=== PATIENT | female | born 1985 | race Caucasian/White ===

== ENCOUNTER 2021-02-10 09:00 | Emergency (ER) | payer OTHER, SELFPAY ==
[2021-02-10 09:12] VITALS: BP 145/74; PULSE 70; RESP 14; TEMP 36.4; O2SAT 99; BMI 22.6
--- NOTE | 2021-02-10 09:30 | ED.BACK ---
HPI - Back Pain/Injury General Chief Complaint: Back Pain/Injury Stated Complaint: extreme back and neck pain Time Seen by Provider: 02/10/21 09:29 Source: patient Limitations: no limitations History of Present Illness HPI Narrative: 35-year-old female nonsmoker with no chronic medical problems presents with a chief complaint of a sharp and stabbing anterior chest pain that radiates to her back. This is worsened by deep breath and improves with rest. She denies any cough, runny nose or sore throat. She denies any shortness of breath. She denies any recent travel, history of blood clot. She does take control. She denies any lower extremity pain or swelling. Additionally, and in the same timeframe she has been having pain in her left neck and left shoulder with occasional radiation into her left arm. She denies any current radiation of pain nor numbness, tingling or weakness. She did have some tingling in her left arm yesterday. She denies any trauma or injury. She denies any obvious overuse but states she has been working on her property. She denies any neck pain previously Related Data Home Medications Medication Instructions Recorded Confirmed norgestimate-ethinyl estradiol 1 tab PO DAILY 02/10/21 02/10/21 0.18 mg/0.215mg/0.25mg-35 mcg(28)tablet (Tri-Sprintec (28)) Previous Rx's Medication Instructions Recorded cyclobenzaprine 10 mg tablet 10 mg PO TID PRN #14 tab 02/10/21 gabapentin 300 mg capsule 300 mg PO BEDTIME #14 cap 02/10/21 hydrocodone 5 mg-acetaminophen 325 1 tab PO Q4-6H PRN #10 tab 02/10/21 mg tablet ketorolac 10 mg tablet 10 mg PO Q6H PRN #14 tab 02/10/21 methylprednisolone 4 mg tablets in See Rx Instructions .ROUTE 02/10/21 a dose pack (Medrol (Maximino)) .COMPLEX #21 ea Allergies Allergy/AdvReac Type Severity Reaction Status Date / Time No Known Drug Allergies Allergy Verified 02/10/21 09:18 Review of Systems Review of Systems Narrative: GENERAL: Denies chills, fatigue, malaise, fever, sweats. HEENT: Denies sinus pain, ear pain, sore throat, difficulty swallowing, dizziness. RESPIRATORY: See HPI. CARDIOVASCULAR: See HPI GASTROINTESTINAL: Denies nausea, vomiting, abdominal pain, diarrhea, constipation, melena. : Denies dysuria, frequency, incontinence, hematuria, urinary retention. MUSCULOSKELETAL: See HPI SKIN: Denies rash, skin lesions, or other NEUROLOGIC: See HPI PSYCHIATRIC: No concerning psychosocial issues. 12 point review of systems is negative except for those stated above Patient History Social History Smoking Status: Never smoker Smoking Status: Never smoker alcohol intake frequency: a few times a week Substance Use Type: marijuana Exam Narrative Exam Narrative: GENERAL: [35] year old patient appears stated age. Well-developed patient, in mild distress. Tearful, obviously uncomfortable HEAD: Atraumatic. Normocephalic. EYES: Pupils equal round and reactive. Extraocular motions intact. No scleral icterus. No injection or drainage. ENT: Nose without bleeding, purulent drainage. Throat without erythema, tonsillar hypertrophy or exudate. Airway patent. NECK: Trachea midline. No midline or bony tenderness, step-offs or crepitance. There is some pain on palpation of the left-sided paraspinal musculature, slight worsening with axial loading though no radiation of pain. No extremity weakness, numbness or tingling noted CARDIOVASCULAR: Regular rate and rhythm without murmurs, gallops, or rubs. RESPIRATORY: Clear to auscultation. Breath sounds equal bilaterally. No wheezes, rales, or rhonchi. GASTROINTESTINAL: Abdomen soft, non-tender, nondistended. EXTREMITIES: No edema or joint tenderness. BACK: Nontender without deformity or crepitance. No flank tenderness. NEURO: AOx3. SKIN: No rash or erythema of visible areas Initial Vital Signs Initial Vital Signs: Vital Signs Temperature 97.6 F 02/10/21 09:12 Pulse Rate 70 02/10/21 09:12 Respiratory Rate 14 02/10/21 09:12 Blood Pressure 145/74 H 02/10/21 09:12 Pulse Oximetry 99 02/10/21 09:12 Course Orders Ordered: ED Orders 02/10/21 10:16 Basic Metabolic Panel Stat Complete Blood Count AUTO DIFF Stat D Dimer Stat Troponin & CK Cardiac Panel Stat Discontinued Medications Gabapentin (Gabapentin 300 Mg Capsule) 300 mg PO NOW ONE Stop: 02/10/21 10:03 Last Admin: 02/10/21 10:17 Dose: 300 mg Documented by: MADIE Hydromorphone HCl (Hydromorphone 1 Mg Inj) 1 mg IM NOW ONE Stop: 02/10/21 12:04 Last Admin: 02/10/21 12:14 Dose: 1 mg Documented by: CORNELIUS Ketorolac Tromethamine (Ketorolac 30 Mg/Ml Vial) 30 mg IM NOW ONE Stop: 02/10/21 10:03 Last Admin: 02/10/21 10:17 Dose: 30 mg Documented by: MADIE Prednisone (Prednisone 20 Mg Tablet) 40 mg PO NOW ONE Stop: 02/10/21 10:03 Last Admin: 02/10/21 10:16 Dose: 40 mg Documented by: MADIE Consultations Consultation #1: discussed with ortho (Jennifer) and he has reviewed images. No need for emergent intervention. Recommends return precautions, symptomatic treatment, follow up with Dr. Deras Vital Signs Vital signs: Vital Signs - 8 hr 02/10/21 11:53 02/10/21 12:29 02/10/21 12:46 Pulse Rate 59 L 56 L 60 Respiratory Rate 16 16 Blood Pressure 133/78 139/78 138/75 Pulse Oximetry 100 100 100 02/10/21 12:47 02/10/21 13:00 Pulse Rate 57 L 52 L Respiratory Rate 15 Blood Pressure 138/75 Pulse Oximetry 100 100 MDM - Back Pain/Injury Lab Data Result diagrams: 02/10/21 10:16 02/10/21 10:16 Labs: Lab Results 02/10/21 02/10/21 02/10/21 Range/Units 10:16 10:16 10:16 WBC 5.7 (4.5-11.0) X10^3/uL RBC 3.94 L (4.0-5.2) X10^6/uL Hgb 11.7 L (12.0-16.0) g/dL Hct 34.6 L (36-46) % MCV 87.8 (80-100) fL MCH 29.6 (26-34) PG MCHC 33.7 (30-36) % RDW 12.4 (11.6-14.8) % Plt Count 225 (150-400) X10^3/uL Neut % (Auto) 63.2 (50-75) % Lymph % (Auto) 27.6 (25-40) % Evangeline % (Auto) 6.4 (3-14) % Eos % (Auto) 1.9 L (2-4) % Baso % (Auto) 0.9 (0-2) % Neut # (Auto) 3600 (4355-1487) /uL Lymph # (Auto) 1600 (5824-5418) /uL Evangeline # (Auto) 400 (0-900) /uL Eos # (Auto) 100 (0-450) /uL Baso # (Auto) 0 (0-100) /uL D-Dimer < 200 (<230) ng/mL Sodium 135 L (137-145) mmol/L Potassium 4.5 (3.4-5.1) mmol/L Chloride 104 (98-107) mmol/L Carbon Dioxide 26 (22-32) mmol/L BUN 13 (7-17) mg/dL Creatinine 0.77 (0.52-1.04) mg/dL Estimated GFR > 60.0 (>60) mL/min BUN/Creatinine Ratio 16.9 (6-22) Glucose 102 H (70-100) mg/dL Calcium 9.3 (8.4-10.2) mg/dL Total Creatine Kinase 32 (30-135) U/L CK-MB (CK-2) TNP CK-MB (CK-2) Rel Index TNP Troponin I < 0.012 (0.01-0.034) ng/mL Imaging Data Cervical MRI: Radiologist's Impression: Chart Viewer Diagnostics DATE TYPE STATUS REF RANGE/AUTHOR Hx Today 10:02 Katherine Sanz Today 10:01 Katherine Sanz 35, F011/15/1985 [facility] ER, Main ED 165.1cm 61.689kg BMI: 22.6kg/m? Back Pain/Injury Search Chart No Data to Display Total Pending Discharge ONSET Today 13:00 BetitodotKelin Charo 35 F [address] [id number] Resonance ReportSigned Patient: Kelin Spencer LMR#: [id number]: [id number]:[id number]/Sex: 35 / FDate of Service: 02/10/21Loc: EDAccession Number: [id number] Procedure: MR cervical spine wo con Ordering Provider: Jose Manuel Santos D.O. PROCEDURE: MR CERVICAL SPINE WO CON INDICATIONS: severe neck pain, arm involvement TECHNIQUE: Noncontrast sagittal T1 spin echo and T2 fast spin echo, sagittal STIR, foraminal oblique sagittal T2 fast spin echo, and axial gradient echo or T2 fast spin echo through the cervical spine. COMPARISON: None. FINDINGS: Image quality: Excellent. Alignment and Curvature: There is normal bony alignment. Bone Marrow: Mild reactive endplate changes noted adjacent to the C6-C7 disc. Spinal Cord: Visualized spinal cord has normal size and signal. No cerebellar tonsillar herniation. Paraspinous Soft Tissues: No paravertebral masses. Prevertebral soft tissues are normal in thickness. C2-C3: Normal appearance. C3-C4: Normal appearance. C4-C5: Slight loss of disc signal. Mild, diffuse disc bulge. Mild bilateral uncovertebral joint hypertrophy. Mild narrowing of the central canal. Mild bilateral neural foraminal narrowing. No neural compression. Fissure noted in the posterior annulus. C5-C6: Slight loss of disc signal. Mild, diffuse disc bulge. Mild left uncovertebral joint hypertrophy. Mild narrowing of the central canal. Mild left neural foraminal narrowing. No neural compression. Fissure noted in the posterior annulus. C6-C7: Loss of disc signal. Mild, diffuse disc bulge. Small central disc protrusion. Mild left uncovertebral joint hypertrophy. Moderate narrowing of the central canal. Mild left neural foraminal narrowing. Disc protrusion abuts and slightly contours the anterior margin of the cervical spinal cord. C7-T1: Normal appearance. IMPRESSION: 1. Mild C4-C5, C5-C6 and C6-C7 degenerative disc disease. 2. Moderate C6-C7 central canal narrowing. Mild C4-C5 and C5-C6 central canal narrowing. 3. Mild bilateral C4-C5 neural foraminal narrowing. Mild left C5-C6 and C6-C7 neural foraminal narrowing. 4. C6-C7 central disc protrusion abuts and slightly contours the anterior margin of the cervical spinal cord. Dictated by: Katherine Sanz MD, PhD on 02/10/2021 at 11:25 Approved by: Katherine Sanz MD, PhD on 02/10/2021 at 11:30 Discharge Plan Departure Patient Disposition: Home Clinical Impression: Cervical radiculopathy Instructions: DI for Neck Pain Activity Restrictions/Additional Instructions: *You have been diagnosed with [cervical radiculopathy with mild to moderate impingement on peripheral nerves exiting your left side of neck. No surgical indication. Atypical chest pain without evidence of cardiac, pulmonary or blood clot as the cause] *What to do: *Please continue to take your regular medications as directed. [ x] New medication prescriptions sent to your pharmacy: [ [facility]] [ ] New medication written as a paper prescription [ ] No new medications given *Please follow up with your primary care provider in 2-3 days, call for an appointment. Let them know you were seen in the Emergency Department and that we ask that you be seen in follow up. We will electronically transmit a record of today's note if your PCP is in our system *If you do not have a primary care provider please contact the [facility] Resource line at [phone]. They will ask some questions about your medical history and help get you set up with a doctor in the community. *Return to Emergency Department if you should have any new, worsening or concerning symptoms, such as [fever greater than 101 F, shaking chills, worsening pain, persistent vomiting or other bothersome symptoms] Prescriptions: New cyclobenzaprine 10 mg tablet 10 mg PO TID PRN (Reason: muscle spasm) Qty: 14 RF: 0 hydrocodone-acetaminophen 5-325 mg tablet 1 tab PO Q4-6H PRN (Reason: pain) Qty: 10 RF: 0 ketorolac 10 mg tablet 10 mg PO Q6H PRN (Reason: pain) Qty: 14 RF: 0 gabapentin 300 mg capsule 300 mg PO BEDTIME Qty: 14 RF: 0 methylprednisolone [Medrol (Maximino)] 4 mg tablets,dose pack See Rx Instructions .ROUTE .COMPLEX Qty: 21 RF: 0 No Action norgestimate-ethinyl estradiol [Tri-Sprintec (28)] 0.18/0.215/0.25 mg-35 mcg (28) tablet 1 tab PO DAILY RF: 0 Referrals: Jasiel Deras DO [Physician] - Boris Herrera MD [Primary Care Provider] -
--- NOTE | 2021-02-10 10:01 | DI.RAD.S_ITS ---
PROCEDURE: XR CHEST 1V INDICATIONS: sharp chest pain TECHNIQUE: One view of the chest was acquired. COMPARISON: [facility], CHEST 1 VIEW, 01/23/2013, 10:23. [facility], CHEST 2 VIEW, 06/19/2009, 1:31. FINDINGS: Surgical changes and devices: None. Lungs and pleura: Lungs are clear. No pleural effusions or pneumothorax. Mediastinum: Mediastinal contours appear normal. Heart size is normal. Bones and chest wall: No suspicious bony lesions. Overlying soft tissues appear unremarkable. IMPRESSION: No acute cardiopulmonary disease process. Dictated by: Katherine Sanz MD, PhD on 02/10/2021 at 10:31 Approved by: Katherine Sanz MD, PhD on 02/10/2021 at 10:31
--- NOTE | 2021-02-10 10:02 | DI.MRI.S_ITS ---
PROCEDURE: MR CERVICAL SPINE WO CON INDICATIONS: severe neck pain, arm involvement TECHNIQUE: Noncontrast sagittal T1 spin echo and T2 fast spin echo, sagittal STIR, foraminal oblique sagittal T2 fast spin echo, and axial gradient echo or T2 fast spin echo through the cervical spine. COMPARISON: None. FINDINGS: Image quality: Excellent. Alignment and Curvature: There is normal bony alignment. Bone Marrow: Mild reactive endplate changes noted adjacent to the C6-C7 disc. Spinal Cord: Visualized spinal cord has normal size and signal. No cerebellar tonsillar herniation. Paraspinous Soft Tissues: No paravertebral masses. Prevertebral soft tissues are normal in thickness. C2-C3: Normal appearance. C3-C4: Normal appearance. C4-C5: Slight loss of disc signal. Mild, diffuse disc bulge. Mild bilateral uncovertebral joint hypertrophy. Mild narrowing of the central canal. Mild bilateral neural foraminal narrowing. No neural compression. Fissure noted in the posterior annulus. C5-C6: Slight loss of disc signal. Mild, diffuse disc bulge. Mild left uncovertebral joint hypertrophy. Mild narrowing of the central canal. Mild left neural foraminal narrowing. No neural compression. Fissure noted in the posterior annulus. C6-C7: Loss of disc signal. Mild, diffuse disc bulge. Small central disc protrusion. Mild left uncovertebral joint hypertrophy. Moderate narrowing of the central canal. Mild left neural foraminal narrowing. Disc protrusion abuts and slightly contours the anterior margin of the cervical spinal cord. C7-T1: Normal appearance. IMPRESSION: 1. Mild C4-C5, C5-C6 and C6-C7 degenerative disc disease. 2. Moderate C6-C7 central canal narrowing. Mild C4-C5 and C5-C6 central canal narrowing. 3. Mild bilateral C4-C5 neural foraminal narrowing. Mild left C5-C6 and C6-C7 neural foraminal narrowing. 4. C6-C7 central disc protrusion abuts and slightly contours the anterior margin of the cervical spinal cord. Dictated by: Katherine Sanz MD, PhD on 02/10/2021 at 11:25 Approved by: Katherine Sanz MD, PhD on 02/10/2021 at 11:30
[2021-02-10] MEDS: predniSONE 20 MG TABLET 40 MG PO (10:16)
[2021-02-10] MEDS: KETOROLAC 30 MG/ML VIAL IM (10:17)
[2021-02-10] MEDS: GABAPENTIN 300 MG CAPSULE PO (10:17)
[2021-02-10 10:27] LABS: Add Manual Diff / Slide Review NO; Basophils Absolute Auto 0 /uL (0-100); Basophils Percent Auto 0.9 % (0-2); Eosinophils Absolute Auto 100 /uL (0-450); Eosinophils Percent Auto 1.9 % (2-4); Hematocrit 34.6 % (36-46); Hemoglobin 11.7 g/dL (12.0-16.0); Lymphocytes Absolute Auto 1600 /uL (1100-4500); Lymphocytes Percent Auto 27.6 % (25-40); Mean Corpuscular HGB Conc 33.7 % (30-36); Mean Corpuscular Hemoglobin 29.6 PG (26-34); Mean Corpuscular Volume 87.8 fL (80-100); Monocytes Absolute Auto 400 /uL (0-900); Monocytes Percent Auto 6.4 % (3-14); Neutrophils Absolute Auto 3600 /uL (1500-7000); Neutrophils Percent Auto 63.2 % (50-75); Platelet Count 225 X10^3/uL (150-400); Red Blood Cell Count 3.94 X10^6/uL (4.0-5.2); Red Cell Distribution Width 12.4 % (11.6-14.8); White Blood Cell Count 5.7 X10^3/uL (4.5-11.0)
[2021-02-10 10:36] LABS: BUN Creatinine Ratio 16.9 (6-22); Blood Urea Nitrogen 13 mg/dL (7-17); Calcium 9.3 mg/dL (8.4-10.2); Carbon Dioxide 26 mmol/L (22-32); Chloride 104 mmol/L (98-107); Creatine Kinase 32 U/L (30-135); Estimated Glomerular Filt Rate > 60.0 mL/min (>60); Glucose 102 mg/dL (70-100); HEMOLYSIS < 15 (0-50); Potassium 4.5 mmol/L (3.4-5.1); Sodium 135 mmol/L (137-145)
[2021-02-10 10:49] LABS: Troponin I < 0.012 ng/mL (0.01-0.034)
[2021-02-10 10:52] LABS: D Dimer < 200 ng/mL (<230)
[2021-02-10 11:53] VITALS: BP 133/78; PULSE 59; RESP 16; O2SAT 100
[2021-02-10] MEDS: HYDROMORPHONE 1 MG INJ IM (12:14)
[2021-02-10 12:29] VITALS: BP 139/78; PULSE 56; PULSE 58; RESP 16; O2SAT 100
[2021-02-10 12:46] VITALS: BP 138/75; PULSE 60; O2SAT 100
[2021-02-10 12:47] VITALS: BP 138/75; PULSE 57; RESP 15; O2SAT 100
[2021-02-10 13:00] VITALS: PULSE 52; O2SAT 100
== END 2021-02-10 13:44 | disposition home or self-care (01) ==
PROVIDERS: Emergency Provider Emergency Medicine; PCP Psychiatry & Neurology Forensic Psychiatry
DX: M54.12 Radiculopathy, cervical region (principal); R07.9 Chest pain, unspecified
CPT/HCPCS: 36415; 71045; 72141; 80048; 82550; 84484; 85025; 85379; 93005; 96372; 99284; J1170; J1885